=== PATIENT | female | born 1975 | race Caucasian/White ===

== ENCOUNTER 2020-12-10 21:52 | Observation (INO) | payer BC ==
[2020-12-10] MEDS ORDERED: HYDROmorphone 0.5 MG/0.5 ML Syringe IVPUSH ONE (22:11)
[2020-12-10] MEDS ORDERED: Ondansetron 4 MG/2 ML SDV IVPUSH ONE (22:11)
[2020-12-10] MEDS ORDERED: Sodium Chloride 0.9% 1,000 ML IV ONE (22:11)
[2020-12-10] MEDS ORDERED: Tamsulosin 0.4 MG Cap.ER PO ONE (22:11)
[2020-12-10 22:26] LABS: CHLORIDE,CL 104 mmol/L (98-107); SODIUM,NA 140 mmol/L (136-145)
--- NOTE | 2020-12-10 23:28 | EDM.PDOC ---
ED HPI GENERAL MEDICAL PROBLEM - General Chief Complaint: General Stated Complaint: left flank pain Time Seen by Provider: 12/10/20 22:06 Source of Information: Reports: Patient History Limitations: Reports: No Limitations - History of Present Illness INITIAL COMMENTS - FREE TEXT/NARRATIVE: Left sided kidney stone pain. Noted on CT yesterday to have 5mm stone in proximal left ureter. No nausea/emesis. No fever/chills. Has had previous stones. Took Ibuprofen before coming to ER. No other acute complaints left flank Pain Score (Numeric/FACES): 9 - Related Data Allergies Allergy/AdvReac Type Severity Reaction Status Date / Time Sulfa (Sulfonamide Allergy Cannot Verified 12/10/20 21:53 Antibiotics) Remember Home Meds: Home Meds Cholecalciferol (Vitamin D3) [Vitamin D3] 5,000 units PO DAILY 12/22/13 [History] Cyanocobalamin (Vitamin B-12) [B-12] 2,500 mcg PO QAM 12/22/13 [History] Desogestrel-Ethinyl Estradiol [Desogestrel-Ethinyl Estrad Tab] 1 tab PO BEDTIME 12/22/13 [History] FLUoxetine HCl [Fluoxetine HCl] 20 mg PO QAM 12/22/13 [History] Ferrous Gluconate 325 mg PO QAM 12/22/13 [History] InFLIXimab [Remicade] 1,200 mg IV ASDIRECTED 12/22/13 [History] Mesalamine [Lialda] 4 tab PO QAM 12/22/13 [History] Metoprolol Tartrate [Lopressor] 100 mg PO BID 12/22/13 [History] Multivitamins [Tab-A-Cristobal] 1 tab PO QAM 12/22/13 [History] Nitrofurantoin Monohyd/M-Cryst [Macrobid 100 mg Capsule] 100 mg PO BID #20 capsule 09/15/14 [Rx] Past Medical History Cardiovascular History: Reports: Hypertension Gastrointestinal History: Reports: Inflammatory Bowel Disease Genitourinary History: Reports: Renal Calculus Psychiatric History: Reports: Anxiety, Depression Endocrine/Metabolic History: Reports: Obesity/BMI 30+ Social & Family History - Living Situation & Occupation Living situation: Reports: with Family, Occupation: Employed ED ROS GENERAL - Review of Systems Review Of Systems: Comprehensive ROS is negative, except as noted in HPI. ED EXAM, GENERAL - Physical Exam Exam: See Below Exam Limited By: No Limitations General Appearance: Alert, Moderate Distress, Obese Eye Exam: Bilateral Eye: EOMI, PERRL Ears: Hearing Grossly Normal Nose: No: Nasal Deformity, Nasal Swelling, Nasal Drainage Throat/Mouth: Normal Lips, Normal Voice, No Airway Compromise Head: Atraumatic, Normocephalic Neck: Supple, Non-Tender, Full Range of Motion Respiratory/Chest: No Respiratory Distress, Lungs Clear, Normal Breath Sounds, No Accessory Muscle Use Cardiovascular: Regular Rate, Rhythm, No Murmur GI/Abdominal: Soft, Non-Tender, Other (obese) (Female) Exam: Deferred Rectal (Female) Exam: Deferred Back Exam: No: CVA Tenderness (L), CVA Tenderness (R), Muscle Spasm, Paraspinal Tenderness, Vertebral Tenderness Extremities: Normal Range of Motion, Non-Tender, Normal Capillary Refill Neurological: Alert, Oriented, Normal Cognition, No Motor/Sensory Deficits Psychiatric: Anxious Skin Exam: Warm, Dry, Intact, Normal Color Course - Vital Signs Last Recorded V/S: Last Vital Signs Temp 36.7 C 12/10/20 21:53 Pulse 71 12/10/20 21:53 Resp 22 H 12/10/20 21:53 BP 169/99 H 12/10/20 21:53 Pulse Ox 95 12/10/20 21:53 - Orders/Labs/Meds Orders: Active Orders 24 hr Category Date Time Status Sodium Chloride 0.9% [Normal Saline] 1,000 ml Med 12/10/20 22:11 Active IV .BOLUS Medication Orders Sodium Chloride (Normal Saline) 1,000 mls @ 500 mls/hr IV .BOLUS ONE Stop: 12/11/20 00:10 Last Admin: 12/10/20 23:05 Dose: 500 mls/hr Documented by: CLARENCE Labs: Laboratory Tests 12/10/20 12/10/20 Range/Units 22:00 22:10 WBC 10.9 H (4.0-10.2) K/uL RBC 4.42 (3.77-5.09) M/uL Hgb 14.0 (11.7-15.5) g/dL Hct 40.3 (34.0-46.0) % MCV 91.2 (84.0-98.0) fL MCH 31.7 (28.2-33.3) pg MCHC 34.7 (31.7-36.0) g/dL RDW 13.7 (11.2-14.1) % Plt Count 406 H (150-350) K/uL Neut % (Auto) 60.1 (45.0-80.0) % Lymph % (Auto) 26.2 (10.0-50.0) % [place] % (Auto) 9.0 (2.0-14.0) % Eos % (Auto) 4.0 (0.0-5.0) % Baso % (Auto) 0.7 (0.0-2.0) % Neut # (Auto) 6.57 (1.40-7.00) K/uL Lymph # (Auto) 2.86 (0.50-3.50) K/uL [place] # (Auto) 0.98 (0.00-1.00) K/uL Eos # (Auto) 0.44 (0.00-0.50) K/uL Baso # (Auto) 0.08 (0.00-0.20) K/uL Sodium 140 (136-145) mmol/L Potassium 4.0 (3.5-5.1) mmol/L Chloride 104 (98-107) mmol/L Carbon Dioxide 24.7 (21.0-32.0) mmol/L BUN 13 (7-18) mg/dL Creatinine 0.64 (0.51-1.17) mg/dL Est Cr Clr Drug Dosing TNP Estimated GFR (MDRD) > 60 mL/min Glucose 117 H (70-99) mg/dL Calcium 8.9 (8.5-10.1) mg/dL Magnesium 1.7 L (1.8-2.4) mg/dL Total Bilirubin 0.2 (0.2-1.0) mg/dL AST 21 (15-37) U/L ALT 32 (12-78) U/L Alkaline Phosphatase 97 (46-116) IU/L Total Protein 7.9 (6.4-8.2) g/dL Albumin 3.6 (3.4-5.0) g/dL Meds: Medications Generic Name Dose Route Start Last Admin Trade Name Freq PRN Reason Stop Dose Admin Sodium Chloride 1,000 mls @ 500 mls/hr 12/10/20 22:11 12/10/20 23:05 Normal Saline IV 12/11/20 00:10 500 mls/hr .BOLUS ONE Administration Discontinued Medications Generic Name Dose Route Start Last Admin Trade Name [place] PRN Reason Stop Dose Admin Hydromorphone HCl 0.5 mg 12/10/20 22:11 12/10/20 22:19 Hydromorphone 0.5 Mg/0.5 Ml Syringe IVPUSH 12/10/20 22:12 0.5 mg ONETIME ONE Administration Ondansetron HCl 4 mg 12/10/20 22:11 12/10/20 22:29 Ondansetron 4 Mg/2 Ml Sdv IVPUSH 12/10/20 22:12 4 mg ONETIME ONE Administration Tamsulosin HCl 0.4 mg 12/10/20 22:11 12/10/20 23:05 Tamsulosin 0.4 Mg Cap.Er PO 12/10/20 22:12 0.4 mg ONETIME ONE Administration - Re-Assessments/Exams Free Text/Narrative Re-Assessment/Exam: 12/10/20 23:31 Admit observation. Flomax/Dilaudid given in ER. Good pain relief. Departure - Departure Time of Disposition: 23:00 Disposition: Refer to Observation Condition: Good Clinical Impression: Kidney stone - Discharge Information *PRESCRIPTION DRUG MONITORING PROGRAM REVIEWED*: Not Applicable *COPY OF PRESCRIPTION DRUG MONITORING REPORT IN PATIENT HORTENCIA: Not Applicable Sepsis Event Note (ED) - Evaluation Sepsis Screening Result: No Definite Risk - Focused Exam Vital Signs: Vital Signs Temp Pulse Resp BP Pulse Ox 12/10/20 21:53 36.7 C 71 22 H 169/99 H 95 - Problem List & Annotations (1) Kidney stone SNOMED Code(s): 74154444 Code(s): N20.0 - CALCULUS OF KIDNEY Status: Acute Priority: High Current Visit: Yes Onset Date: 09/15/14 Annotation/Comment:: 5mm stone proximal left ureter noted on CT scan 12/09/20. Received t#3 from clinic but no Toradol/Zofran/Flomax. These will be started in addition to PRN Dilaudid and IV fluids. (2) Ulcerative colitis SNOMED Code(s): 52374811 Code(s): K51.90 - ULCERATIVE COLITIS, UNSPECIFIED, WITHOUT COMPLICATIONS Status: Chronic Priority: Low Current Visit: No Annotation/Comment:: Chronic/unchanged. Admits to not following any specific diet with goal of improving UC. Time spent with patient with focus on diet and lifestyle interventions she could be using to potentially help improve symptoms. (3) HTN, Benign hypertension SNOMED Code(s): 78247726 Code(s): I10 - ESSENTIAL (PRIMARY) HYPERTENSION Status: Chronic Priority: Medium Current Visit: No Annotation/Comment:: Observe trends (4) Mixed anxiety and depressive disorder SNOMED Code(s): 228002208 Code(s): F41.8 - OTHER SPECIFIED ANXIETY DISORDERS Status: Chronic Priority: Low Current Visit: No Annotation/Comment:: Under good control by patient history. Continue to watch closely by her regular provider (5) Obesity SNOMED Code(s): 247038684 Code(s): E66.9 - OBESITY, UNSPECIFIED Status: Chronic Priority: High C urrent Visit: No Annotation/Comment:: Severe morbid obesity. Patient would benefit from a lipid profile, weight loss and exercise in moderation, etc. Whole foods/anti-inflammatory diet recommended. - Problem List Review Problem List Initiated/Reviewed/Updated: Yes - My Orders Last 24 Hours: My Active Orders 12/10/20 22:11 Sodium Chloride 0.9% [Normal Saline] 1,000 ml IV .BOLUS - Assessment/Plan Admission H&P: Please use this note as an admission H&P Last 24 Hours: My Active Orders 12/10/20 22:11 Sodium Chloride 0.9% [Normal Saline] 1,000 ml IV .BOLUS Assessment:: as above. Stable and suitable for general supervision. Plan: admit observation/plan as noted above. Anticipate 1-2 day stay depending on clinical course and if she passes stone.
[2020-12-10] MEDS ORDERED: Acetaminophen 325 MG Tab PO PRN (23:45)
[2020-12-10] MEDS ORDERED: Sodium Chloride 0.9% 1,000 ML IV SCH (23:45)
[2020-12-10] MEDS ORDERED: HYDROmorphone 1 MG/ML Syringe IVPUSH PRN (23:45)
[2020-12-10] MEDS ORDERED: Ondansetron 4 MG/2 ML SDV IVPUSH PRN (23:45)
[2020-12-11] MEDS ORDERED: Sodium Chloride 0.9% 1,000 ML IV SCH (01:30)
[2020-12-11] MEDS: Ketorolac 15 MG/ML SDV IVPUSH SCH ×3 (03:01→14:36)
[2020-12-11] MEDS ORDERED: Tamsulosin 0.4 MG Cap.ER PO SCH (08:30)
[2020-12-11] MEDS ORDERED: FLUoxetine 20 MG Cap PO SCH (08:45)
[2020-12-11] MEDS ORDERED: Metoprolol Tartrate 50 MG Tab PO SCH (08:45)
[2020-12-11] MEDS ORDERED: Ondansetron 4 MG Tab.DIS PO PRN (14:54)
--- NOTE | 2020-12-11 15:19 | PCM.DCSUM1 ---
Discharge Summary - Hospital Course Diagnosis: Stroke: No - Discharge Data Discharge Date: 12/11/20 Discharge Disposition: Home, Self-Care 01 Condition: Good - Referral to Home Health Primary Care Physician: Dot Steinberg PA-C - Discharge Diagnosis/Problem(s) (1) Kidney stone SNOMED Code(s): 24335651 ICD Code: N20.0 - CALCULUS OF KIDNEY Status: Acute Priority: High Current Visit: Yes Onset Date: 09/15/14 Problem Details: 5mm stone proximal left ureter noted on CT scan 12/09/20. Received t#3 from clinic but no Toradol/Zofran/Flomax. These were started in addition to PRN Dilaudid and IV fluids. Patient's pain much improved since then. No larger than a "3" on scale. No longer has flank pain. Pain has moved down to lower left abdomen. Would like to go home and see if she can pass the stone. (2) Ulcerative colitis SNOMED Code(s): 54924084 ICD Code: K51.90 - ULCERATIVE COLITIS, UNSPECIFIED, WITHOUT COMPLICATIONS Status: Chronic Priority: Low Current Visit: No Problem Details: Ch ronic/unchanged. Admits to not following any specific diet with goal of improving UC. Time spent with patient with focus on diet and lifestyle interventions she could be using to potentially help improve symptoms. (3) HTN, Benign hypertension SNOMED Code(s): 13992116 ICD Code: I10 - ESSENTIAL (PRIMARY) HYPERTENSION Status: Chronic Priority: Medium Current Visit: No Problem Details: Observe trends (4) Mixed anxiety and depressive disorder SNOMED Code(s): 476893172 ICD Code: F41.8 - OTHER SPECIFIED ANXIETY DISORDERS Status: Chronic Priority: Low Current Visit: No Problem Details: Under good control by patient history. Continue to watch closely by her regular provider (5) Obesity SNOMED Code(s): 283003089 ICD Code: E66.9 - OBESITY, UNSPECIFIED Status: Chronic Priority: High Current Visit: No Problem Details: Severe morbid obesity. Patient would benefit from a lipid profile, weight loss and exercise in moderation, etc. Whole foods/anti-inflammatory diet recommended. - Patient Summary/Data Hospital Course: Pain much improved. Has moved to lower left abdomen. Patient received Flomax/IV fluids/Toradol/PRN Dilaudid. Would like to go home and see if she can pass stone. Will send home with Toradol tabs. Patient made aware that she should not take Toradol with other NSAIDS such as Ibuprofen/Naprosyn. To follow up next week if she still has not passed stone. - Patient Instructions Diet: Anti-Inflammatory Showering/Bathing: May Shower Other/Special Instructions: Follow up as needed for sudden worsening. Get re checked if you have not passed the stone by /Sunday. - Discharge Plan *PRESCRIPTION DRUG MONITORING PROGRAM REVIEWED*: Not Applicable *COPY OF PRESCRIPTION DRUG MONITORING REPORT IN PATIENT HORTENCIA: Not Applicable Prescriptions/Med Rec: Tamsulosin [Flomax] 0.4 mg PO ASDIRECTED PRN #20 cap.er PRN Reason: Kidney stone symptoms Home Medications: Home Meds Cyanocobalamin (Vitamin B-12) [B-12] 2,500 mcg PO QAM 12/22/13 [History] FLUoxetine HCl [Fluoxetine HCl] 20 mg PO QAM 12/22/13 [History] Ferrous Gluconate 325 mg PO QAM 12/22/13 [History] InFLIXimab [Remicade] 1,200 mg IV ASDIRECTED 12/22/13 [History] Metoprolol Tartrate [Lopressor] 100 mg PO DAILY 12/22/13 [History] Multivitamins [Tab-A-Cristobal] 1 tab PO QAM 12/22/13 [History] Acetaminophen with Codeine [Acetaminophen-Cod #3] 1 each PO Q6HR PRN 12/11/20 [History] Cholecalciferol (Vitamin D3) [Vitamin D3] 2,500 unit PO DAILY 12/11/20 [History] Ergocalciferol (Vitamin D2) [Vitamin D2] 50,000 unit PO DAILY 12/11/20 [History] Norethindrone 0.35 mg PO DAILY 12/11/20 [History] Ondansetron [Zofran ODT] 4 mg PO Q6H PRN 12/11/20 [History] Tamsulosin [Flomax] 0.4 mg PO ASDIRECTED PRN #20 cap.er 12/11/20 [Rx] azaTHIOprine [Imuran] 50 mg PO DAILY 12/11/20 [History] Forms: ED Department Discharge Referrals: Dot Steinberg PA-C [Primary Care Provider] - - Discharge Summary/Plan Comment DC Time >30 min.: No - General Info Date of Service: 12/11/20 Admission Dx/Problem (Free Text: kidney stone Subjective Update: Feels better. Numeric/FACES Score: 2 - Review of Systems General: Reports: No Symptoms HEENT: Reports: No Symptoms Pulmonary: Reports: No Symptoms Cardiovascular: Reports: No Symptoms Gastrointestinal: Reports: Abdominal Pain (some left lower abdominal discomfort. Pain gradually moved from left flank downwards overnight. ) Genitourinary: Reports: Frequency, Urgency. Denies: Burning, Hematuria, Flank Pain Musculoskeletal: Reports: No Symptoms Neurological: Reports: No Symptoms Psychiatric: Reports: No Symptoms - Patient Data Vitals - Most Recent: Last Vital Signs Temp 36.8 C 12/11/20 11:38 Pulse 78 12/11/20 11:38 Resp 16 12/11/20 11:38 BP 126/79 12/11/20 11:38 Pulse Ox 99 12/11/20 11:38 Weight - Most Recent: 156.489 kg I&O - Last 24 hours: Intake & Output 12/11/20 12/11/20 12/11/20 06:59 14:59 22:59 Intake Total 100 Output Total 50 500 Balance 50 -500 Lab Results - Last 24 hrs: Laboratory Results - last 24 hr 12/10/20 12/10/20 Range/Units 22:00 22:10 WBC 10.9 H (4.0-10.2) K/uL RBC 4.42 (3.77-5.09) M/uL Hgb 14.0 (11.7-15.5) g/dL Hct 40.3 (34.0-46.0) % MCV 91.2 (84.0-98.0) fL MCH 31.7 (28.2-33.3) pg MCHC 34.7 (31.7-36.0) g/dL RDW 13.7 (11.2-14.1) % Plt Count 406 H (150-350) K/uL Neut % (Auto) 60.1 (45.0-80.0) % Lymph % (Auto) 26.2 (10.0-50.0) % [place] % (Auto) 9.0 (2.0-14.0) % Eos % (Auto) 4.0 (0.0-5.0) % Baso % (Auto) 0.7 (0.0-2.0) % Neut # (Auto) 6.57 (1.40-7.00) K/uL Lymph # (Auto) 2.86 (0.50-3.50) K/uL [place] # (Auto) 0.98 (0.00-1.00) K/uL Eos # (Auto) 0.44 (0.00-0.50) K/uL Baso # (Auto) 0.08 (0.00-0.20) K/uL Sodium 140 (136-145) mmol/L Potassium 4.0 (3.5-5.1) mmol/L Chloride 104 (98-107) mmol/L Carbon Dioxide 24.7 (21.0-32.0) mmol/L BUN 13 (7-18) mg/dL Creatinine 0.64 (0.51-1.17) mg/dL Est Cr Clr Drug Dosing TNP Estimated GFR (MDRD) > 60 mL/min Glucose 117 H (70-99) mg/dL Calcium 8.9 (8.5-10.1) mg/dL Magnesium 1.7 L (1.8-2.4) mg/dL Total Bilirubin 0.2 (0.2-1.0) mg/dL AST 21 (15-37) U/L ALT 32 (12-78) U/L Alkaline Phosphatase 97 (46-116) IU/L Total Protein 7.9 (6.4-8.2) g/dL Albumin 3.6 (3.4-5.0) g/dL Med Orders - Current: Current Medications Acetaminophen (Acetaminophen 325 Mg Tab) 650 mg PO Q4H PRN PRN Reason: Pain (Mild 1-3)/fever Azathioprine (Azathioprine 50 Mg Tab) 50 mg PO DAILY [facility] Last Admin: 12/11/20 08:50 Dose: 50 mg Documented by: Fluoxetine HCl (Fluoxetine 20 Mg Cap) 20 mg PO DAILY [facility] Last Admin: 12/11/20 08:49 Dose: 20 mg Documented by: Hydromorphone HCl (Hydromorphone 1 Mg/Ml Syringe) 0.25 mg IVPUSH Q2H PRN PRN Reason: Pain (severe 7-10) Sodium Chloride (Normal Saline) 1,000 mls @ 150 mls/hr IV ASDIRECTED [facility] Stop: 12/12/20 08:09 Last Admin: 12/11/20 07:15 Dose: 150 mls/hr Documented by: Ketorolac Tromethamine (Ketorolac 15 Mg/Ml Sdv) 15 mg IVPUSH Q6H [facility] Stop: 12/15/20 23:47 Last Admin: 12/11/20 14:36 Dose: 15 mg Documented by: Metoprolol Tartrate (Metoprolol Tartrate 50 Mg Tab) 100 mg PO DAILY [facility] Last Admin: 12/11/20 08:48 Dose: 100 mg Documented by: Non-Formulary Medication (Norethindrone [Norethindrone]) 0.35 mg PO DAILY [facility] Ondansetron HCl (Ondansetron 4 Mg/2 Ml Sdv) 4 mg IVPUSH Q6H PRN PRN Reason: Nausea/Vomiting Ondansetron HCl (Ondansetron 4 Mg Tab.Dis) 4 mg PO Q6H PRN PRN Reason: Nausea Tamsulosin HCl (Tamsulosin 0.4 Mg Cap.Er) 0.4 mg PO BIDPC [facility] Last Admin: 12/11/20 08:50 Dose: 0.4 mg Documented by: Discontinued Medications Fluoxetine HCl (Flu[facility] 20 Mg Cap) [facility] Hydromorphone HCl (Hydromorphone 0.5 Mg/0.5 Ml Syringe) 0.5 mg IVPUSH ONETIME ONE Stop: 12/10/20 22:12 Last Admin: 12/10/20 22:19 Dose: 0.5 mg Documented by: Sodium Chloride (Normal Saline) 1,000 mls @ 500 mls/hr IV .BOLUS ONE Stop: 12/11/20 00:10 Last Admin: 12/10/20 23:05 Dose: 500 mls/hr Documented by: Sodium Chloride (Normal Saline) 1,000 mls @ 150 mls/hr IV ASDIRECTED [facility] Metoprolol Tartrate (Metoprolol Tartrate 50 Mg Tab) 100 mg PO DAILY [facility] Ondansetron HCl (Ondansetron 4 Mg/2 Ml Sdv) 4 mg IVPUSH ONETIME ONE Stop: 12/10/20 22:12 Last Admin: 12/10/20 22:29 Dose: 4 mg Documented by: Tamsulosin HCl (Tamsulosin 0.4 Mg Cap.Er) 0.4 mg PO ONETIME ONE Stop: 12/10/20 22:12 Last Admin: 12/10/20 23:05 Dose: 0.4 mg Documented by: - Exam General: Reports: Alert, Oriented, Cooperative, No Acute Distress HEENT: Reports: Pupils Equal, Pupils Reactive, EOMI, Mucous Membr. Moist/[place] Neck: Reports: Supple Lungs: Reports: Normal Respiratory Effort GI/Abdominal Exam: Soft, Non-Tender Back Exam: Denies: CVA Tenderness (L), CVA Tenderness (R), Muscle Spasm, Paraspinal Tenderness, Vertebral Tenderness Extremities: Non-Tender, Normal Capillary Refill Skin: Reports: Warm, Dry Neurological: Reports: No New Focal Deficit Psy/Mental Status: Reports: Alert, Normal Affect, Normal Mood
[2020-12-12] MEDS ORDERED: FLUoxetine 20 MG Cap PO SCH (08:00)
[2020-12-12] MEDS ORDERED: NORETHINDRONE 0.35 MG PO SCH (08:00)
[2020-12-12] MEDS ORDERED: Metoprolol Tartrate 50 MG Tab PO SCH (08:00)
== END 2020-12-11 15:28 | disposition home or self-care (01) ==
LOC: LL.ED 21:52 → LL.MS 22:40 → UNDOADMOB 22:40 → UNDODISOB 12-11 15:28
PROVIDERS: ADMIT Emergency Medicine; ATTEND Emergency Medicine
DX: N20.1 Calculus of ureter (principal); K51.90 Ulcerative colitis, unspecified, without complications; I10 Essential (primary) hypertension; F41.8 Other specified anxiety disorders; E66.01 Morbid (severe) obesity due to excess calories; Z68.43 Body mass index [BMI] 50.0-59.9, adult; Z79.899 Other long term (current) drug therapy; Z88.2 Allergy status to sulfonamides; Z87.442 Personal history of urinary calculi
CPT/HCPCS: 36415; 80053; 83735; 85025; 96374; 96375; 96376; 99284; A9270; G0378; J1170; J1885; J2405; J7030; J7500; 99217; 99219